=== PATIENT | male | born 1945 | race Caucasian/White ===

== ENCOUNTER → 2025-08-07 13:35 | Outpatient (REF) | payer OTHER, SELFPAY | LOC: RCS 13:35 | PROVIDERS: ATTENDING PHYSICIAN Internal Medicine; FAMILY PHYSICIAN Family Medicine | DX: I48.0 Paroxysmal atrial fibrillation (principal); Z95.818 Presence of other cardiac implants and grafts; I10 Essential (primary) hypertension; I50.32 Chronic diastolic (congestive) heart failure | CPT/HCPCS: 93306 ==

== ENCOUNTER 2025-08-15 06:08 | Day surgery (SDC) | payer OTHER, SELFPAY ==
[2025-08-15] VITALS (14 sets, daily range): BP systolic 126–153; BP diastolic 76–88
[2025-08-15] MEDS: NSS 1000 IV (09:14)
--- NOTE | 2025-08-15 09:20 | ITS.CL.PN ---
Thermoplastic Technician - Procedure Note
Procedure
Procedure Note:
CARDIAC CATHETERIZATION REPORT
Date of Procedure: 08/15/2025
Referring: Dr. Michael Arellano MD, PhD
Indication: Atypical angina, newly reduced EF
PROCEDURE(S)
1. right heart catheterization
2. left heart catheterization
3. coronary angiography
ACCESS
1. 6F right radial artery (closure: radial band)
2. 5F right antecubital vein (closure: manual hemostasis)
CATHETERS
1. 5F [place]
2. 6F JR4
3. 6F JL3.5
MODERATE SEDATION: 25 minutes of moderate sedation was utilized. An independent medical engineer was present to assist with and help manage the patient's level of consciousness and physiologic status.
HEMODYNAMIC DATA
LV 133/13 (EDP 17) mmHg
AO 133/80 (mean 104) mmHg
RA 9 mmHg
RV 33/8 (EDP 12) mmHg
PA 36/19 (mean 26) mmHg
PCWP 15 mmHg
SaO2 92.8%
SvO2 66.4%
Hb 11.8 g/dL
CO/CI 6.80/2.95 L/min/m2
SVR 1118 dsc*-5
PVR 1.6 Wood units
CORONARY ANGIOGRAPHY
Dominance: Co-dominant
LM: Large, normal
LAD: Large vessel giving rise to a small D1 and large D2 before wrapping around the apex. There are trivial luminal irregularities only.
LCx: Large vessel giving rise to a small OM1, large branching OM2, and moderate caliber LPDA. There are trivial luminal irregularities only.
RCA: Large caliber vessel giving rise to a very small RPDA. There are trivial luminal irregularities only.
RADIATION: dose 331 mGy; DAP 24 Gy*cm2; fluoroscopy time 4.8 min
CONCLUSIONS
1. Trivial luminal irregularities only in a codominant system
2. Mildly elevated biventricular filling pressures and normal cardiac index
3. No aortic stenosis on hemodynamic pullback
RECOMMENDATIONS
1. Primary prevention of coronary artery disease
2. Ongoing management of nonischemic cardiomyopathy
Copy to: Dr. Michael Arellano MD, PhD (registered nurse maternal child); Dr. Bean Ervin DO (PCP)
Signed: Cristian Prakash MD, PhD
== END 2025-08-15 11:45 | disposition home or self-care (01) ==
LOC: CATH 06:08
PROVIDERS: ATTENDING PHYSICIAN Student in an Organized Health Care Education/Training Program; FAMILY PHYSICIAN Family Medicine; OTHER PHYSICIAN Internal Medicine
DX: I20.89 Other forms of angina pectoris (principal); I48.0 Paroxysmal atrial fibrillation; I11.0 Hypertensive heart disease with heart failure; I50.32 Chronic diastolic (congestive) heart failure; I49.3 Ventricular premature depolarization; Z79.82 Long term (current) use of aspirin; Z79.899 Other long term (current) drug therapy; Z95.818 Presence of other cardiac implants and grafts
CPT/HCPCS: 93460; 99152; 99153; C1769; C1894; Q9967